=== PATIENT | female | born 1960 | race African-American/Black ===

== ENCOUNTER 2017-11-03 12:07 | Day surgery (SDC) | payer MEDICARE, MEDICAID ==
[~2017-11-03] VITALS: Ht 167.6 cm; Wt 84.5 kg
[~2017-11-03 12:07] MED LIST: ALBU8.5H8 IH; ASPI-611 PO; ATOR20TA66 PO; DULO30CA51 PO; INSU100V9 SQ; LISI2.5T89 PO; METF500T PO; METH500T6 PO; NITR0.4T51 SL; OMEP20TA5 PO; PER10325T PO
[2017-11-03] MEDS ORDERED: fentaNYL/PF 50MCG/1 ML 2ML syringe ONE (12:42)
[2017-11-03] MEDS ORDERED: MIDAZolam 1mg/ml 10ml vial ONE (12:43)
[2017-11-03 12:59] VITALS: BP 138/86
[2017-11-03 13:56] VITALS: BP 151/70
[2017-11-03 14:06] VITALS: BP 149/78
[2017-11-03 14:16] VITALS: BP 166/85
[2017-11-03 14:26] VITALS: BP 163/78
== END 2017-11-03 14:30 | disposition home or self-care (01) ==
LOC: GI LAB 12:07
PROVIDERS: ATTEND Internal Medicine Gastroenterology
DX: D50.9 Iron deficiency anemia, unspecified (principal); Z88.0 Allergy status to penicillin; Z88.6 Allergy status to analgesic agent; Z88.8 Allergy status to other drugs, medicaments and biological substances
CPT/HCPCS: 45378; 99153; G0500; J2250; J3010; J7030; A4620

== ENCOUNTER 2017-12-13 13:14 | Emergency (ER) | payer MEDICARE, MEDICAID ==
[~2017-12-13] VITALS: Ht 170.2 cm; Wt 91.1 kg
[2017-12-13 14:04] LABS: BASOPHILS % (AUTO) 0.3 % (0-1); EOSINOPHILS # (AUTO) 0.2 X10'3 (0-0.9); EOSINOPHILS % (AUTO) 4.9 % (0-6); HEMOGLOBIN 11.8 g/dl (12.0-16.0); LYMPHOCYTES # (AUTO) 1.4 X10'3 (1.1-4.8); LYMPHOCYTES % (AUTO) 33.4 % (21-51); MEAN CORPUSCULAR HEMOGLOBIN 30.6 PG (27.0-31.0); MEAN CORPUSCULAR HGB CONC 34.7 % (33.0-36.5); MEAN CORPUSCULAR VOLUME 88.1 FL (78-98); MEAN PLATELET VOLUME 7.4 FL (7.4-10.4); MONOCYTES # (AUTO) 0.3 X10'3 (0-0.9); MONOCYTES % (AUTO) 7.4 % (2-12); NEUTROPHILS # (AUTO) 2.2 X10'3 (1.8-7.7); PLATELET COUNT 294 X10'3 (140-440); RED BLOOD COUNT 3.86 X10'6 (4.20-5.60); RED CELL DISTRIBUTION WIDTH 12.8 % (11.5-14.5); WHITE BLOOD COUNT 4.2 X10'3 (4.5-11.0)
[2017-12-13 14:13] LABS: PARTIAL THROMBOPLASTIN TIME 29 SECONDS (22-32)
[2017-12-13 14:17] LABS: ALANINE AMINOTRANSFERASE 21 U/L (12-78); ALBUMIN 3.7 G/DL (3.4-5.0); ALBUMIN/GLOBULIN RATIO 0.9 (1.1-1.5); ALKALINE PHOSPHATASE 98 IU/L (46-116); ANION GAP 8 (8-16); ASPARTATE AMINO TRANSFERASE 12 U/L (10-37); BILIRUBIN,TOTAL 0.6 MG/DL (0.1-1.0); BLOOD UREA NITROGEN 13 MG/DL (7-18); BUN/CREATININE RATIO 18.1 (6.6-38.0); CALCIUM 8.8 MG/DL (8.5-10.1); CHLORIDE 105 MMOL/L (99-107); CREATININE 0.72 MG/DL (0.40-0.90); GLUCOSE 129 MG/DL (70-104); POTASSIUM 3.2 MMOL/L (3.5-5.1); SODIUM 145 MMOL/L (135-145); TOTAL CARBON DIOXIDE 31.7 MMOL/L (24-32); TOTAL PROTEIN 7.6 G/DL (6.4-8.2); eGFR > 90 ML/MIN
[2017-12-13 14:52] VITALS: BP 140/58
[2017-12-13] MEDS ORDERED: potassium Cl oral solution 20 MEQ/15 ML PO ONE (14:55)
[2017-12-13] MEDS ORDERED: normal saline 1000ML IV soln IVB ONE (14:55)
[2017-12-13] MEDS ORDERED: ONDA4TAB9 PO (14:55)
[2017-12-13] MEDS ORDERED: ondansetron/PF 4mg/2ml inj IV ONE (14:55)
[2017-12-13] MEDS ORDERED: ondansetron 4mg rapidly disintigrating tab PO ONE (16:15)
[2017-12-16] MEDS ORDERED: LEVO500T89 PO (19:49)
[2017-12-16] MEDS ORDERED: TRAM50TA2 PO (19:49)
== END 2017-12-13 16:55 | disposition home or self-care (01) ==
LOC: ER 13:15
DX: K52.9 Noninfective gastroenteritis and colitis, unspecified (principal); R10.13 Epigastric pain; M19.90 Unspecified osteoarthritis, unspecified site; G89.29 Other chronic pain; Z87.820 Personal history of traumatic brain injury; Z98.890 Other specified postprocedural states; Z88.0 Allergy status to penicillin; Z88.6 Allergy status to analgesic agent; Z88.5 Allergy status to narcotic agent; Z79.82 Long term (current) use of aspirin; Z79.4 Long term (current) use of insulin; Z79.899 Other long term (current) drug therapy
CPT/HCPCS: 36415; 71045; 80053; 84484; 85025; 85610; 85730; 93005; 99285; J7030

== ENCOUNTER 2018-03-01 00:57 | Emergency (ER) | payer MEDICARE, MEDICAID ==
[~2018-03-01] VITALS: Ht 167.6 cm; Wt 96.5 kg
[2018-03-01 01:40] LABS: BASOPHILS # (AUTO) 0.1 X10'3 (0-0.2); BASOPHILS % (AUTO) 1.5 % (0-1); EOSINOPHILS # (AUTO) 0.1 X10'3 (0-0.9); EOSINOPHILS % (AUTO) 2.7 % (0-6); HEMOGLOBIN 11.7 g/dl (12.0-16.0); LYMPHOCYTES # (AUTO) 1.7 X10'3 (1.1-4.8); LYMPHOCYTES % (AUTO) 35.7 % (21-51); MEAN CORPUSCULAR HEMOGLOBIN 29.5 PG (27.0-31.0); MEAN CORPUSCULAR HGB CONC 33.4 % (33.0-36.5); MEAN CORPUSCULAR VOLUME 88.4 FL (78-98); MEAN PLATELET VOLUME 8.2 FL (7.4-10.4); MONOCYTES # (AUTO) 0.3 X10'3 (0-0.9); MONOCYTES % (AUTO) 6.1 % (2-12); NEUTROPHILS # (AUTO) 2.6 X10'3 (1.8-7.7); PLATELET COUNT 244 X10'3 (140-440); RED BLOOD COUNT 3.96 X10'6 (4.20-5.60); RED CELL DISTRIBUTION WIDTH 12.8 % (11.5-14.5); WHITE BLOOD COUNT 4.8 X10'3 (4.5-11.0)
[2018-03-01 01:50] LABS: ALANINE AMINOTRANSFERASE 25 U/L (12-78); ALBUMIN 3.2 G/DL (3.4-5.0); ALBUMIN/GLOBULIN RATIO 0.8 (1.1-1.5); ALKALINE PHOSPHATASE 88 IU/L (46-116); ANION GAP 6 (8-16); ASPARTATE AMINO TRANSFERASE 17 U/L (10-37); BILIRUBIN,TOTAL 0.4 MG/DL (0.1-1.0); BLOOD UREA NITROGEN 13 MG/DL (7-18); BUN/CREATININE RATIO 16.9 (6.6-38.0); CALCIUM 8.9 MG/DL (8.5-10.1); CHLORIDE 105 MMOL/L (99-107); CREATININE 0.77 MG/DL (0.40-0.90); GLUCOSE 124 MG/DL (70-104); SODIUM 141 MMOL/L (135-145); TOTAL CARBON DIOXIDE 29.6 MMOL/L (24-32); TOTAL PROTEIN 7.2 G/DL (6.4-8.2); eGFR > 90 ML/MIN
[2018-03-01] MEDS ORDERED: morphine 4 MG/ML inj SYRINge IV ONE (01:50)
[2018-03-01] MEDS ORDERED: ondansetron/PF 4mg/2ml inj IV ONE (01:50)
[2018-03-01 02:41] VITALS: BP 138/71
[2018-03-01 02:48] LABS: CLARITY,URINE Clear (Clear); COLOR,URINE Yellow (Yellow); GLUCOSE, URINE Negative (Neg); KETONES,URINE Negative (Neg); LEUKOCYTE ESTERASE ,URINE Negative (Neg); NITRITES, URINE Negative (Neg); OCCULT BLOOD,URINE Negative (Neg); PH,URINE 5.5 (4.8-8.0); PROTEIN,URINE Trace mg/dl (Neg); UA COLLECTION TYPE VOIDED
[2018-03-01 02:59] LABS: BACTERIA,URINE NONE SEEN /HPF (Neg); RBC,URINE NONE SEEN /HPF (0-2); SQUAMOUS EPITHELIAL CELL,UR FEW /LPF (FEW); WBC,URINE NONE SEEN /HPF (0-4)
[2018-03-01] MEDS ORDERED: KETO15CR2 TOP (03:12)
[2018-03-01] MEDS ORDERED: IBUP-1984 PO (03:12)
== END 2018-03-01 03:43 | disposition home or self-care (01) ==
LOC: ER 00:58
DX: B37.2 Candidiasis of skin and nail (principal); E11.9 Type 2 diabetes mellitus without complications; F17.200 Nicotine dependence, unspecified, uncomplicated; G89.29 Other chronic pain; Z98.890 Other specified postprocedural states; Z79.82 Long term (current) use of aspirin; Z79.4 Long term (current) use of insulin; Z79.899 Other long term (current) drug therapy; Z88.5 Allergy status to narcotic agent; Z88.0 Allergy status to penicillin; Z88.8 Allergy status to other drugs, medicaments and biological substances
CPT/HCPCS: 36415; 80053; 81001; 82948; 85025; 96374; 96375; 99284; J2270; J2405

== ENCOUNTER 2018-04-19 15:30 | Emergency (ER) | payer MEDICARE, MEDICAID ==
[~2018-04-19] VITALS: Ht 584.7 cm; Wt 85.0 kg
[~2018-04-19 15:30] MED LIST changes: +KETO15CR2 TOP
[2018-04-19 15:44] VITALS: BP 125/69
[2018-04-19] MEDS ORDERED: oxyCODONE/APAP 10/325mg tablet PO ONE (16:35)
== END 2018-04-19 17:09 | disposition home or self-care (01) ==
LOC: ER 15:30
DX: G89.29 Other chronic pain (principal); M54.9 Dorsalgia, unspecified; E11.9 Type 2 diabetes mellitus without complications; Z98.890 Other specified postprocedural states; Z88.0 Allergy status to penicillin; Z88.5 Allergy status to narcotic agent; Z79.899 Other long term (current) drug therapy; Z79.82 Long term (current) use of aspirin; Z79.84 Long term (current) use of oral hypoglycemic drugs
CPT/HCPCS: 99283

== ENCOUNTER 2018-05-07 22:18 | Emergency (ER) | payer MEDICARE, MEDICAID ==
[~2018-05-07] VITALS: Ht 182.9 cm; Wt 80.0 kg
[2018-05-07 22:32] VITALS: BP 133/63
[2018-05-07] MEDS ORDERED: ketorolac trometh inj. 60 MG/2 ML VIAL IM ONE (23:20)
[2018-05-07] MEDS ORDERED: CYCL-1 PO (23:32)
[2018-05-07] MEDS ORDERED: DICL50TA8 PO (23:32)
== END 2018-05-08 00:12 | disposition home or self-care (01) ==
LOC: ER 22:20
DX: M54.32 Sciatica, left side (principal); M25.562 Pain in left knee; M25.552 Pain in left hip; E11.9 Type 2 diabetes mellitus without complications; M19.90 Unspecified osteoarthritis, unspecified site; G89.29 Other chronic pain; Z98.890 Other specified postprocedural states; Z59.0 Homelessness; Z88.0 Allergy status to penicillin; Z88.5 Allergy status to narcotic agent; Z88.8 Allergy status to other drugs, medicaments and biological substances; Z79.82 Long term (current) use of aspirin; Z79.84 Long term (current) use of oral hypoglycemic drugs; Z79.899 Other long term (current) drug therapy
CPT/HCPCS: 96372; 99283; J1885

== ENCOUNTER 2018-05-29 20:55 | Emergency (ER) | payer MEDICARE, MEDICAID ==
[~2018-05-29] VITALS: Ht 182.9 cm; Wt 86.0 kg
[~2018-05-29 20:55] MED LIST changes: +CYCL-1 PO; +DICL50TA8 PO
[2018-05-29] MEDS ORDERED: ketorolac trometh. 30mg/ml inj. IV ONE (21:30)
[2018-05-29] MEDS ORDERED: ondansetron/PF 4mg/2ml inj IV ONE (21:30)
[2018-05-29] MEDS ORDERED: normal saline 1000ML IV soln IVB ONE (21:30)
[2018-05-29 21:49] LABS: BASOPHILS % (AUTO) 0.4 % (0-1); EOSINOPHILS # (AUTO) 0.3 X10'3 (0-0.9); EOSINOPHILS % (AUTO) 6.6 % (0-6); HEMATOCRIT 35.9 % (35.0-45.0); HEMOGLOBIN 12.2 g/dl (12.0-16.0); LYMPHOCYTES # (AUTO) 1.5 X10'3 (1.1-4.8); LYMPHOCYTES % (AUTO) 38.1 % (21-51); MEAN CORPUSCULAR HEMOGLOBIN 30.4 PG (27.0-31.0); MEAN CORPUSCULAR VOLUME 89.3 FL (78-98); MEAN PLATELET VOLUME 8.2 FL (7.4-10.4); MONOCYTES # (AUTO) 0.4 X10'3 (0-0.9); MONOCYTES % (AUTO) 10.2 % (2-12); NEUTROPHILS # (AUTO) 1.7 X10'3 (1.8-7.7); NEUTROPHILS % (AUTO) 44.7 % (42-75); PLATELET COUNT 239 X10'3 (140-440); RED BLOOD COUNT 4.02 X10'6 (4.20-5.60); RED CELL DISTRIBUTION WIDTH 13.5 % (11.5-14.5); WHITE BLOOD COUNT 3.9 X10'3 (4.5-11.0)
[2018-05-29 22:04] LABS: ALANINE AMINOTRANSFERASE 20 U/L (12-78); ALBUMIN 3.6 G/DL (3.4-5.0); ALBUMIN/GLOBULIN RATIO 0.9 (1.1-1.5); ALKALINE PHOSPHATASE 83 IU/L (46-116); ANION GAP 7 (8-16); ASPARTATE AMINO TRANSFERASE 15 U/L (10-37); BILIRUBIN,TOTAL 0.7 MG/DL (0.1-1.0); BLOOD UREA NITROGEN 14 MG/DL (7-18); BUN/CREATININE RATIO 14.4 (6.6-38.0); CALCIUM 9.2 MG/DL (8.5-10.1); CHLORIDE 104 MMOL/L (99-107); CREATININE 0.97 MG/DL (0.40-0.90); GLUCOSE 181 MG/DL (70-104); LIPASE < 50 U/L (73-393); POTASSIUM 3.4 MMOL/L (3.5-5.1); SODIUM 139 MMOL/L (135-145); TOTAL CARBON DIOXIDE 27.8 MMOL/L (24-32); TOTAL PROTEIN 7.4 G/DL (6.4-8.2); eGFR 71 ML/MIN
[2018-05-29 23:29] VITALS: BP 103/51
== END 2018-05-29 23:32 | disposition home or self-care (01) ==
LOC: ER 20:56
DX: R19.7 Diarrhea, unspecified (principal); E11.9 Type 2 diabetes mellitus without complications; G89.29 Other chronic pain; Z98.890 Other specified postprocedural states; Z59.0 Homelessness; Z88.0 Allergy status to penicillin; Z88.5 Allergy status to narcotic agent; Z79.82 Long term (current) use of aspirin; Z79.84 Long term (current) use of oral hypoglycemic drugs; Z79.899 Other long term (current) drug therapy
CPT/HCPCS: 36415; 80053; 83690; 85025; 96361; 96374; 96375; 99284; J1885; J2405; J7030